=== PATIENT | female | born 1970 | race African-American/Black ===

== ENCOUNTER 2017-10-06 05:44 | Day surgery (SDC) | payer OTHER ==
[~2017-10-06] VITALS: Ht 165.1 cm; Wt 70.2 kg
[~2017-10-06 05:44] MED LIST: AMLO-147 PO; METO-319 PO
[2017-10-06 06:24] VITALS: Ht 165.1 cm; Wt 70.2 kg
[2017-10-06 07:08] VITALS: BP 149/89; PULSE 56; RESP 16
[2017-10-06 07:29] VITALS: BP 139/74; PULSE 55; RESP 18
[2017-10-06] MEDS ORDERED: MIDAZOLAM 1 MG/ML 2 ML INJ ONE ×2 (07:33)
[2017-10-06] MEDS ORDERED: FENTAnyl 50 MCG/ML VIAL ONE (07:33)
--- NOTE | 2017-10-06 07:39 | OPPN ---
Date/Time of Note Date/Time of Note DATE: 10/06/17 TIME: 07:37 Operative Report Preoperative Diagnosis Abdominal pain Postoperative Diagnosis Hiatal hernia and gastroesophageal reflux disease Gastritis with erosion Operation/Procedure Performed Esophagogastroduodenoscopy and biopsy Surgeon see signature line medical office assistant instructor None Anesthesia: moderate sedation Estimated blood loss: none Transfusion Required none Specimen Gastric mucosal biopsy Grafts/Implants none Complications none BENITO MICHELE MD Oct 06, 2017 07:39
[2017-10-06 07:56] VITALS: BP 136/76; RESP 20
--- NOTE | 2017-10-07 07:58 | GILP ---
DATE OF PROCEDURE: 10/06/2017 NAME OF PROCEDURE: Esophagogastroduodenoscopy and biopsy. SURGEON: Benito Harris MD PREOPERATIVE DIAGNOSIS: Abdominal pain. POSTOPERATIVE DIAGNOSES: 1. Hiatal hernia. 2. Gastroesophageal reflux disease. 3. Gastritis with erosions. 4. Gastric mucosal biopsies were taken for Helicobacter pylori test. INDICATION FOR THE PROCEDURE: Ms. Jemal Connell is a 46-year-old female patient who had upper ab dominal pain, not responding to therapy. The patient was scheduled for endoscopic examination for f urther evaluation. The procedure and possible complications were well explained to the patient. The patient understood and consented to the procedure. DESCRIPTION OF PROCEDURE: Under the influence of fentanyl and Versed, the gastroscope was carefully introduced into the esophagus. Under direct vision, it was advanced to the stomach and through the pylorus into the duodenal bulb and descending duodenum. FINDINGS: ESOPHAGUS: The patient had hiatal hernia and gastroesophageal reflux disease. STOMACH: She had gastritis with erosions. Gastric mucosal biopsies were taken for H. pylori test. DUODENUM: Normal. The patient tolerated the procedure very well and there was no complication from the procedure. At the end of the procedures, she was awake with stable vital signs and she was discharged home to the care of her family. IMPRESSION: Please see postoperative diagnoses. PLAN: 1. Omeprazole 40 mg p.o. q.a.m. 2. Await H. pylori test report. Dictated By: BENITO NOONAN/LADY Conf#: [id number] DID#: [id number]
== END 2017-10-06 19:23 | disposition home or self-care (01) ==
LOC: GIL 05:44
PROVIDERS: ATTEND Internal Medicine Gastroenterology
DX: K44.9 Diaphragmatic hernia without obstruction or gangrene (principal); K21.9 Gastro-esophageal reflux disease without esophagitis; K29.70 Gastritis, unspecified, without bleeding; I10 Essential (primary) hypertension
CPT/HCPCS: 43239; 87081; J2250; J3010; Z7610

== ENCOUNTER 2019-05-01 08:30 | Day surgery (SDC) | payer OTHER ==
[~2019-05-01] VITALS: Ht 165.1 cm; Wt 67.1 kg
[2019-05-01] VITALS (16 sets, daily range): BP systolic 104–157; BP diastolic 59–93; PULSE 56–101; RESP 16–33; Ht 165.1 cm; Wt 67.1 kg
[~2019-05-01 08:30] MED LIST changes: +CEFAZOLIN 2 GM/50 ML (PMX) 50 ML IVPB SCH; -METO-319 PO
[2019-05-01] MEDS ORDERED: OMEP20CA16 PO (09:14)
[2019-05-01] MEDS ORDERED: NAPR-688 PO (09:14)
[2019-05-01] MEDS ORDERED: ERGO2000 PO (09:15)
[2019-05-01] MEDS ORDERED: CHLO25TA2 PO (09:15)
[2019-05-01] MEDS ORDERED: AMLO-147 PO (09:15)
[2019-05-01] MEDS ORDERED: LORA10TA3 PO (09:16)
[2019-05-01] MEDS ORDERED: FLUT16SP17 NASAL (09:16)
[2019-05-01] MEDS ORDERED: LISI-471 PO (09:17)
[2019-05-01] MEDS ORDERED: LACTATED RINGER'S 1,000 ML IV SCH (10:00)
[2019-05-01] MEDS ORDERED: BUPIVACAINE 0.5% (SDV) 30 ML INJ ONE (10:37)
[2019-05-01] MEDS ORDERED: POLYMYXIN/BACITRACIN 1L IRRIG ONE (10:37)
--- NOTE | 2019-05-01 11:08 | PREAC ---
Date/Time of Note Date/Time of Note DATE: 05/01/19 TIME: 11:02 Anesthesia Eval and Record Evaluation Time Pre-Procedure Interview DATE: 05/01/19 TIME: 11:02 Age 48 Sex female NPO: 8 hrs Preoperative diagnosis exostosis Planned procedure bilateraol excision of exostosis Past Medical History Past Medical History: Includes Cardio: HTN Surgery & Anesthesia Issues No known issue Meds Anticoagulation: No Beta Morris within 24 hr: No Reason Beta Morris not given: Pt. not on B-Morris, Other Reported Medications Lisinopril* (Lisinopril*) 20 Mg Tablet, 20 MG PO DAILY, #30 TAB 05/01/19 Fluticasone Propionate* (Fluticasone Propionate* Nasal) 50 Mcg/Toxey - 16 Gm Toxey.susp, 1 SPRAY NASAL BID, #1 BOTTLE TO EACH NOSTRIL 05/01/19 Loratadine* (Loratadine*) 10 Mg Tablet, 10 MG PO DAILY, #30 TAB 05/01/19 Chlorthalidone* (Chlorthalidone*) 25 Mg Tablet, 12.5 MG PO DAILY, TAB 05/01/19 Amlodipine Besylate* (Amlodipine Besylate*) 10 Mg Tablet, 10 MG PO DAILY, #30 TAB 05/01/19 Ergocalciferol (Vitamin D2) (VITAMIN D2) 2,000 Unit Tablet, 2000 UNIT PO DAILY, TAB 05/01/19 Naproxen* (Naproxen*) 500 Mg Tablet, 500 MG PO BID PRN for PAIN AND/OR INFLAMMATION, TAB 05/01/19 Omeprazole* (Omeprazole*) 20 Mg Capsule.dr, 20 MG PO DAILY, #30 CAP 05/01/19 Discontinued Reported Medications Amlodipine Besylate* (Amlodipine Besylate*) 10 Mg Tablet, 10 MG PO DAILY, TAB 12/19/14 Current Medications Cefazolin Sodium/ Dextrose 50 ml @ 100 mls/hr PREOP IVPB ; Start 05/01/19 at 06:00; Stop 05/01/19 at 17:00 Lactated Ringer's 1,000 ml @ 0 mls/hr Q0M IV ; Start 05/01/19 at 10:00 Meds reviewed: Yes Allergies Coded Allergies: No Known Drug Allergies (Unverified Allergy, Unknown, 05/01/19) Allergies Reviewed: No Labs/Studies Labs Reviewed: Reviewed by anesthesiologist test: N/A Pre-procedure Exam Last vitals Vital Signs Date Temp Pulse Resp B/P (MAP) Pulse Ox O2 O2 Flow FiO2 Time Delivery Rate 05/01/19 97.1 60 16 126/69 100 Room Air 09:46 (88) Airway: Adequate mouth opening, Adequate thyromental dist Mallampati: Mallampati II Teeth: Normal Lung: Normal Heart: Normal ASA Physical Status ASA physical status: 3 Emergency: None Planned Anesthetic General/MAC: ETT, LMA, MAC Pre-operative Attestations Prior to commencing anesthesia and surgery, the patient was re-evaluated, there was verification of: *The patient's identity *The results of appropriate recent lab work and preoperative vital signs *The above evaluation not changing prior to induction *Anesthetic plan, risk benefits, alternative and complications discussed with patient/family; questions answered; patient/family understands, accepts and wishes to proceed. JOSR GIL MD May 01, 2019 11:08
--- NOTE | 2019-05-01 11:29 | HPN ---
Date/Time of Note Date/Time of Note DATE: 05/01/19 TIME: 11:28 Interval H&P Admission Note Pt. seen H&P reviewed: No system changes EDITH BOOKER DPM May 01, 2019 11:29
[2019-05-01] MEDS ORDERED: IPRATROPIUM (NEB) 0.5 MG/2.5 ML AMP HHN PRN (11:30)
[2019-05-01] MEDS ORDERED: FENTAnyl 50 MCG/ML VIAL IV PRN ×3 (11:30)
[2019-05-01] MEDS ORDERED: OXYCODONE/ACETAMINOPHEN (5/325) TAB PO PRN ×2 (11:30)
[2019-05-01] MEDS ORDERED: HYDROmorphONE 1 MG/5 ML IV SYRINGE IV PRN ×3 (11:30)
[2019-05-01] MEDS ORDERED: EPHEDrine 25 MG/5 ML SYG IV PRN (11:30)
[2019-05-01] MEDS ORDERED: TRIMETHOBENZAMIDE 100 MG/ML VIAL IM PRN (11:30)
[2019-05-01] MEDS ORDERED: LABETALOL HCL 20MG INJ IV PRN (11:30)
[2019-05-01] MEDS ORDERED: hydrALAzine 20 MG INJ IV PRN (11:30)
[2019-05-01] MEDS ORDERED: DIPHENHYDRAMINE 50 MG INJ IV PRN (11:30)
[2019-05-01] MEDS ORDERED: MIDAZOLAM 1 MG/ML 2 ML INJ IV PRN (11:30)
[2019-05-01] MEDS ORDERED: ALBUTEROL 0.083% (NEB) 2.5 MG/3 ML AMP HHN PRN (11:30)
[2019-05-01] MEDS ORDERED: MEPERIDINE 25 MG INJ IV PRN (11:30)
[2019-05-01] MEDS ORDERED: ONDANSETRON 4 MG INJ IV PRN (11:30)
[2019-05-01] MEDS ORDERED: CEFAZOLIN 1 GM INJ ONE (11:35)
[2019-05-01] MEDS ORDERED: PROPOFOL 20 ML ONE (11:35)
[2019-05-01] MEDS ORDERED: LIDOCAINE 100 MG SYRINGE ONE (11:35)
[2019-05-01] MEDS ORDERED: FENTAnyl 50 MCG/ML VIAL ONE (11:36)
[2019-05-01] MEDS ORDERED: ONDANSETRON 4 MG INJ ONE (11:36)
[2019-05-01] MEDS ORDERED: MIDAZOLAM 1 MG/ML 2 ML INJ ONE (11:36)
[2019-05-01] MEDS ORDERED: BUPIVACAINE 0.5%/EPI (SDV) 30 ML INJ ONE (11:37)
--- NOTE | 2019-05-01 12:42 | OPR ---
Date/Time of Note Date/Time of Note DATE: 05/01/19 TIME: 12:35 Operative Report Procedure Date: May 01, 2019 Preoperative Diagnosis Exostosis of right hallux Exostosis of the left hallux Right foot pain Left foot pain Hyperkeratotic skin right hallux Hyperkeratotic skin left hallux Postoperative Diagnosis Exostosis of right hallux Exostosis of the left hallux Right foot pain Left foot pain Hyperkeratotic skin right hallux Hyperkeratotic skin left hallux Operation/Procedure Performed Exostectomy right hallux Exostectomy left hallux Surgical excision of hyperkeratotic skin right hallux Surgical excision of hyperkeratotic skin left hallux Surgeon see signature line Acid Strength Inspector None Anesthesia Type: general Estimated Blood Loss: minimal Transfusion none Specimen Bone and skin bilateral hallux Grafts/Implants none Complications none Pt Condition Post Procedure: stable Disposition: PACU Indications This is a pleasant 48-year-old female patient who has been suffering with pain in both big toes on the medial IP joints with large bony exostosis and hyperkeratosis recalcitrant to nonsurgical management and periodic sharp debridement. Recommended procedure is exostectomy bilateral hallux with surgical excision of hyperkeratotic skin. Risks and complications of this type of surgery was discussed with patient in great detail. Risks and complications discussed include, but are not limited to, postoperative infection, postoperative pain, chronic pain and disability, hardware failure, malunion, nonunion, delayed union, failure of surgery to correct the problem, need for additional surgical procedures, toenail changes, onychomycosis, deep venous thrombosis, gait disturbance, problems with shoegear, limitation of activities, limb loss and loss of life. Patient understands the discussion and agrees to the procedure. An informed consent was obtained, signed and placed in the chart. No guarantee or warrantee was given or implied as to the outcome of the procedure either in verbal or written form. Procedure Description The patient was seen in the preoperative unit. The proposed surgery was discussed with patient in great detail. Risks and complications of this type of surgery was discussed with patient in great detail. Opportunity was given to patient to ask questions and all questions were answered. The patient acknowledges understanding of the discussion. An informed consent was then obtained, signed and placed in the chart. Patient was taken to the operating room and was placed on the operating table in the supine position. All bony prominences were padded properly. A timeout was called by the circulating nurse. Everyone in the operating room was agreeable to the timeout. The patient was then placed under general anesthesia by the anesthesiologist. Both feet were scrubbed, prepped and draped in the usual aseptic manner. Procedure #1: Exostectomy right hallux with surgical excision of hyperkeratotic skin Attention was directed to the right hallux. A Tourni-cot was applied to the hallux. I made two semielliptical incisions on the medial aspect of the right hallux interphalangeal joint area using a #10 blade. Dissection was deepened u sing sharp and blunt dissection techniques and the skin wedge was removed and passed the back table. Care was taken to identify and protect vital neurovascular structures. Dissection was made to the periosteal layer and the exostosis on the medial base of the distal phalanx was exposed. A rongeur was used to debride the bone and a power rasp was used to smooth out all rough edge s. The wound was flushed with copious muscle sterile normal saline. The subcutaneous layer was closed using 4-0 Vicryl suture and the skin was closed using 4-0 Monocryl in simple suture technique. The turnicot was then removed and prompt hyperemic response was noted to the right hallux. Procedure #2: Exostectomy left hallux with surgical excision of hyperkeratotic skin Same exact procedure was done as an procedure #1. Sterile dressing was applied to bilateral feet. The patient tolerated procedure and anesthesia well. The patient was transferred to the recovery room with vital signs stable and vascular status intact to bilateral lower legs. The patient will be discharged home after postoperative monitoring. Postoperative orders were written. Patient will be followed up in the office in 1 week. EDITH BOOKER DPM May 01, 2019 12:42
--- NOTE | 2019-05-01 12:45 | PAC ---
Date/Time of Note Date/Time of Note DATE: 05/01/19 TIME: 12:44 Post-Anesthesia Notes Post-Anesthesia Note Last documented vital signs Vital Signs Date Temp Pulse Resp B/P (MAP) Pulse Ox O2 O2 Flow FiO2 Time Delivery Rate 05/01/19 97.1 60 16 126/69 100 Room Air 09:46 (88) Activity: WNL Respiratory function: WNL Cardiovascular function: WNL Mental status: Baseline Pain reasonably controlled: Yes Hydration appropriate: Yes Nausea/Vomiting absent: Yes JOSR GIL MD May 01, 2019 12:45
== END 2019-05-01 14:45 | disposition home or self-care (01) ==
LOC: SDS 08:30
PROVIDERS: ATTEND Podiatrist Foot & Ankle Surgery
DX: D16.32 Benign neoplasm of short bones of left lower limb (principal); D16.31 Benign neoplasm of short bones of right lower limb; L57.0 Actinic keratosis; I10 Essential (primary) hypertension
CPT/HCPCS: 28124; 73600; 73620; 88304; 88311; J0690; J2001; J2250; J2405; J3010; Z7512; Z7610